=== PATIENT | male | born 1970 | race Two or more races ===

== ENCOUNTER 2022-03-09 19:23 | Emergency (ER) | payer SELFPAY ==
[~2022-03-09] VITALS: Ht 172.7 cm; Wt 78.0 kg
[2022-03-09 19:32] VITALS: BP 140/90
== END 2022-03-09 23:35 | disposition left against medical advice (07) ==
LOC: ER 19:23
DX: Z53.21 Procedure and treatment not carried out due to patient leaving prior to being seen by health care provider (principal)
CPT/HCPCS: 99283